=== PATIENT | male | born 1990 | race Caucasian/White ===

== ENCOUNTER 2017-02-06 17:18 | Emergency (ER) | payer OTHER ==
[2017-02-06] MEDS ORDERED: ONDANSETRON ODT 4 MG TAB PO STA ×2 (18:33→19:15)
[2017-02-06] MEDS ORDERED: LORazepam 2 MG/ML SYRINGE IM STA ×2 (18:33→18:36)
[2017-02-06] MEDS ORDERED: cloNIDine 0.3 MG/24HR PATCH 1 PATCH PATCH TRANSDERM SCH (18:45)
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
[2017-02-06 19:23] VITALS: BP 129/75; PULSE 97; RESP 20; TEMP 97.9
== END 2017-02-06 19:29 | disposition home or self-care (01) ==
LOC: EC 17:18
DX: F13.230 Sedative, hypnotic or anxiolytic dependence with withdrawal, uncomplicated (principal); R11.2 Nausea with vomiting, unspecified; R10.9 Unspecified abdominal pain; F17.200 Nicotine dependence, unspecified, uncomplicated; Z91.018 Allergy to other foods; Z53.8 Procedure and treatment not carried out for other reasons
CPT/HCPCS: 99283; 96372; J2060